=== PATIENT | female | born 1985 | race Caucasian/White ===

== ENCOUNTER 2020-04-28 09:10 | Emergency (ER) | payer BC, OTHER ==
[~2020-04-28 09:10] MED LIST: NORCO 7.5-3251 EACH PO; PROTONIX 40 MG40 M1 PO
[2020-04-28 11:10] LABS: HEMOGLOBIN 15.4 gm/dl (12.3-15.3); RED BLOOD COUNT 4.82 M/UL (4.00-5.10); WHITE BLOOD COUNT 7.7 K/UL (4.5-11.0)
[2020-04-28 11:31] LABS: BUN/CREATININE RATIO 12 (0-10)
[2020-04-28] MEDS ORDERED: ASPIRIN CHEWABL81 MG PO (18:16)
== END 2020-04-28 18:40 | disposition home or self-care (01) ==
LOC: ER1 09:10
PROVIDERS: Family Medicine
DX: R07.9 Chest pain, unspecified (principal); R06.02 Shortness of breath; R11.0 Nausea; F17.200 Nicotine dependence, unspecified, uncomplicated; Z88.5 Allergy status to narcotic agent; Z88.8 Allergy status to other drugs, medicaments and biological substances; Z87.19 Personal history of other diseases of the digestive system; Z20.822 Contact with and (suspected) exposure to COVID-19
CPT/HCPCS: 0240U; 36415; 71045; 80053; 81001; 82550; 82553; 83874; 84484; 84703; 85025; 85379; 85610; 85730; 93005; 99285; Q9967

== ENCOUNTER → 2020-04-30 | Outpatient (CLI) | payer BC, OTHER ==
[~2020-04-30] MED LIST changes: +ASPIRIN CHEWABL81 MG PO
== END ==
LOC: ECHO 08:29
DX: R01.1 Cardiac murmur, unspecified (principal); R07.9 Chest pain, unspecified; Z86.16 Personal history of COVID-19
CPT/HCPCS: ECHO; 93306

== ENCOUNTER → 2020-05-22 | Outpatient (CLI) | payer BC, OTHER | LOC: HEART 5 11:30 | DX: R07.9 Chest pain, unspecified (principal); R00.2 Palpitations ==